=== PATIENT | male | born 2000 | race Caucasian/White ===

== ENCOUNTER → 2024-05-26 | Day surgery (SDC) | payer BC ==
[~2024-05-26] MED LIST: DEXAMETHASONE SOD PHOS INJ 4 MG/ML SDV ONE; LIDOCAINE HCL 2% LOCAL INJ 5 ML SDV VIAL INJ ONE; METOCLOPRAMIDE HCL 10 MG/2ML VIAL ONE; MIDAZOLAM HCL 2 MG/2 ML VIAL ONE; ONDANSETRON HCL INJ 2MG/ML 2ML 2 MG/ML VIAL ONE; PROPOFOL IV EMULSION 50 ML IV ONE; SEVOFLURANE INHAL SOLN 250 ML PEN BTL ONE
[2024-05-26] MEDS: LACTATED RINGER'S 1,000 ML ONE (14:00)
[2024-05-26 17:54] VITALS: TEMP 97
[2024-05-26 18:20] LABS: WBC,FECAL (FECAL LACTOFERRIN) NEGATIVE (NEGATIVE)
[2024-05-26 18:25] VITALS: BP 124/84; PULSE 91; RESP 18; O2SAT 98
== END | disposition home or self-care (01) ==
LOC: OR 12:51
PROVIDERS: ATTEND Internal Medicine Gastroenterology
DX: K29.50 Unspecified chronic gastritis without bleeding (principal); K21.00 Gastro-esophageal reflux disease with esophagitis, without bleeding; K31.7 Polyp of stomach and duodenum; K52.9 Noninfective gastroenteritis and colitis, unspecified; K22.89 Other specified disease of esophagus; K59.00 Constipation, unspecified; K62.89 Other specified diseases of anus and rectum; K64.8 Other hemorrhoids
CPT/HCPCS: 43239; 45380; 83630; 83993; 86140; 87045; 87177; 87324; 87328; 87449; J1100; J2001; J2250; J2405; J2470; J2704; J2765; J7121; 45378

== ENCOUNTER → 2024-05-28 | Outpatient (REF) | payer BC | LOC: US 15:49 | PROVIDERS: ATTEND Nurse Practitioner | DX: R19.7 Diarrhea, unspecified (principal); R19.5 Other fecal abnormalities | CPT/HCPCS: 76700; 76856 ==